=== PATIENT | female | born 1945 | race Caucasian/White ===

== ENCOUNTER 2016-12-01 11:53 | Inpatient (IN) | payer OTHER ==
[~2016-12-01] VITALS: Ht 157.5 cm; Wt 47.7 kg
[~2016-12-01 11:53] MED LIST: ALBUTEROL0.09 MG/Ac IH; AMLODIPINE5 MG PO; BUPROPION100 MG PO; CLONAZEPAM PO; LORAZEPAM0.5 PO; MEG40 PO; METOPROLOL25 MG PO; NITROQUICK SL; OMEPRAZOLE40 MG PO; PAN PO; TRAZODONE100 M1 PO; ZES10 PO; ZOC20 PO
[2016-12-01 13:20] LABS: BASOPHIL % 0.5 % (0-2); PLATELET COUNT 140 x10^3mcL (130-400)
[2016-12-01 13:23] LABS: RED CELL DISTRIBUTION WIDTH 14.7 % (11.5-14.5)
[2016-12-01 13:43] LABS: ALBUMIN 3.4 g/dL (3.4-5.0); BILIRUBIN TOTAL 0.44 mg/dL (0.20-1.00); CALCIUM 8.8 mg/dL (8.5-10.1); CARBON DIOXIDE 24.2 mmol/L (21-32); CREATININE SERUM 1.3 mg/dL (0.6-1.0); T4(THYROXINE) 10.2 ug/dL (4.7-13.3); TOTAL PROTEIN, SERUM 7.4 g/dL (6.4-8.2)
[2016-12-01 13:47] LABS: POTASSIUM SERUM 2.8 mmol/L (3.5-5.1)
[2016-12-01 14:50] LABS: microscopic required? YES; urine erythrocyte NEGATIVE (NEGATIVE)
[2016-12-01 14:58] LABS: AMPHETAMINE QUAL UR NONE DETECTED (NEG <=1000)
[2016-12-01] MEDS ORDERED: RAMIPRIL2.5 MG PO (14:58)
[2016-12-01] MEDS ORDERED: CARVEDILOL6.25 M1 PO (14:58)
[2016-12-01] MEDS ORDERED: AMBIEN5 MG PO (14:59)
[2016-12-01] MEDS ORDERED: CILOSTAZOL100 M1 PO (14:59)
[2016-12-01] MEDS ORDERED: MYRBETRIQ25 MG PO (15:00)
[2016-12-01] MEDS ORDERED: GABAPENTIN100 M2 PO (15:02)
[2016-12-01 15:41] LABS: MAGNESIUM 1.4 mg/dL (1.8-2.4); PHOSPHOROUS 2.4 mg/dL (2.5-4.9)
[2016-12-01 15:49] LABS: CHOLESTEROL/HDL RATIO 2.5
[2016-12-01 15:51] LABS: FREE T4 0.98 ng/dL (0.76-1.46); FREE THYROXINE INDEX 2.9 ug/dL (1.4-4.5); T4(THYROXINE) 10.5 ug/dL (4.7-13.3)
[2016-12-01 15:59] LABS: T3 TOTAL 1.99 ng/mL
[2016-12-01 16:19] VITALS: BP 195/105
[2016-12-01 18:25] VITALS: BP 195/105
[2016-12-01] MEDS ORDERED: WEL75 PO (18:34)
[2016-12-01] MEDS ORDERED: TRAZODONE50 M1 PO (18:36)
[2016-12-01] MEDS ORDERED: CLARITIN10 MG PO (18:37)
[2016-12-01] MEDS ORDERED: HYOSCYAMINE0.125 M2 PO (18:38)
[2016-12-01] MEDS ORDERED: COLACE100 MG PO (18:39)
[2016-12-01] MEDS ORDERED: BENADRYL ALLERG25 M1 PO (18:39)
[2016-12-01 19:10] VITALS: BP 155/110
[2016-12-01 20:18] LABS: CALCIUM 8.4 mg/dL (8.5-10.1); CARBON DIOXIDE 24.4 mmol/L (21-32); CREATININE SERUM 1.3 mg/dL (0.6-1.0); POTASSIUM SERUM 3.5 mmol/L (3.5-5.1)
[2016-12-01 23:02] VITALS: BP 190/81
[2016-12-02] VITALS (9 sets, daily range): BP systolic 156–193; BP diastolic 65–93
[2016-12-02 06:19] LABS: BASOPHIL % 0.5 % (0-2); PLATELET COUNT 139 x10^3mcL (130-400)
[2016-12-02 06:45] LABS: CALCIUM 8.8 mg/dL (8.5-10.1); CARBON DIOXIDE 23.2 mmol/L (21-32); CREATININE SERUM 1.1 mg/dL (0.6-1.0); MAGNESIUM 2.5 mg/dL (1.8-2.4); POTASSIUM SERUM 3.7 mmol/L (3.5-5.1)
[2016-12-02 06:47] LABS: ALBUMIN 3.2 g/dL (3.4-5.0)
[2016-12-02 06:48] LABS: RED CELL DISTRIBUTION WIDTH 14.8 % (11.5-14.5)
[2016-12-03] VITALS (7 sets, daily range): BP systolic 146–187; BP diastolic 59–92
[2016-12-03 06:24] LABS: BASOPHIL % 0.7 % (0-2)
[2016-12-03 06:30] LABS: CALCIUM 8.6 mg/dL (8.5-10.1); CREATININE SERUM 1.2 mg/dL (0.6-1.0); MAGNESIUM 1.9 mg/dL (1.8-2.4); POTASSIUM SERUM 3.7 mmol/L (3.5-5.1)
[2016-12-03 06:40] LABS: ALBUMIN 3.1 g/dL (3.4-5.0)
[2016-12-03 06:47] LABS: PLATELET COUNT 114 x10^3mcL (130-400); RED CELL DISTRIBUTION WIDTH 15.1 % (11.5-14.5)
[2016-12-04 06:06] VITALS: BP 190/85
[2016-12-04 06:15] LABS: BASOPHIL % 0.5 % (0-2)
[2016-12-04 06:28] LABS: PLATELET COUNT 115 x10^3mcL (130-400); RED CELL DISTRIBUTION WIDTH 14.9 % (11.5-14.5)
[2016-12-04 06:34] LABS: CALCIUM 8.6 mg/dL (8.5-10.1); CARBON DIOXIDE 21.8 mmol/L (21-32); CREATININE SERUM 1.3 mg/dL (0.6-1.0); POTASSIUM SERUM 3.8 mmol/L (3.5-5.1)
[2016-12-04 06:53] VITALS: BP 162/70
[2016-12-04 09:10] VITALS: BP 145/61
[2016-12-04 12:42] VITALS: BP 145/61
[2016-12-04 13:40] VITALS: Ht 157.5 cm; Wt 47.7 kg
[2016-12-04 21:26] VITALS: BP 172/80
[2016-12-04 23:30] VITALS: BP 184/86
[2016-12-05 01:05] VITALS: BP 174/72
[2016-12-05 03:25] VITALS: BP 146/63
[2016-12-05 06:00] VITALS: BP 168/66
[2016-12-05 06:39] LABS: BASOPHIL % 0.4 % (0-2)
[2016-12-05 06:50] LABS: PLATELET COUNT 118 x10^3mcL (130-400); RED CELL DISTRIBUTION WIDTH 15.1 % (11.5-14.5)
[2016-12-05 07:01] LABS: CALCIUM 8.8 mg/dL (8.5-10.1); CARBON DIOXIDE 20.9 mmol/L (21-32); CREATININE SERUM 1.1 mg/dL (0.6-1.0); POTASSIUM SERUM 3.4 mmol/L (3.5-5.1)
[2016-12-05] MEDS ORDERED: COREG12.5 MG PO (13:33)
[2016-12-05] MEDS ORDERED: ALT5 PO (13:34)
[2016-12-05] MEDS ORDERED: COUGH100 MG/5 M PO (13:35)
[2016-12-05 14:34] VITALS: BP 139/60
== END 2016-12-05 15:40 | disposition home or self-care (01) | DRG 205 ==
LOC: ED 11:53 → MU 14:54 → DU 14:54 → MU 12-03 08:58
PROVIDERS: Emergency Medicine; Family Medicine; ADMIT Family Medicine
DX: M94.0 Chondrocostal junction syndrome [Tietze] (principal); I50.43 Acute on chronic combined systolic (congestive) and diastolic (congestive) heart failure; N17.0 Acute kidney failure with tubular necrosis; K86.1 Other chronic pancreatitis; I69.354 Hemiplegia and hemiparesis following cerebral infarction affecting left non-dominant side; Z68.1 Body mass index [BMI] 19.9 or less, adult; E87.4 Mixed disorder of acid-base balance; J44.1 Chronic obstructive pulmonary disease with (acute) exacerbation; E44.0 Moderate protein-calorie malnutrition; I67.4 Hypertensive encephalopathy; C51.9 Malignant neoplasm of vulva, unspecified; I11.0 Hypertensive heart disease with heart failure; M79.7 Fibromyalgia; K86.81 Exocrine pancreatic insufficiency; E87.6 Hypokalemia; E83.51 Hypocalcemia; E83.41 Hypermagnesemia; I73.9 Peripheral vascular disease, unspecified; D63.8 Anemia in other chronic diseases classified elsewhere; F32.9 Major depressive disorder, single episode, unspecified; M15.9 Polyosteoarthritis, unspecified; M06.9 Rheumatoid arthritis, unspecified; E78.00 Pure hypercholesterolemia, unspecified; Z99.3 Dependence on wheelchair; Z87.891 Personal history of nicotine dependence; Z86.73 Personal history of transient ischemic attack (TIA), and cerebral infarction without residual deficits
CPT/HCPCS: 36600; 80307; 83880; 84439; J0360; J1200; J1644; J3475; J3480; J3490; J7030; J7613; J7620; J7644; Q0092; Q9967

== ENCOUNTER 2017-01-01 11:33 | Observation (INO) | payer OTHER ==
[~2017-01-01] VITALS: Ht 157.5 cm; Wt 49.5 kg
[~2017-01-01 11:33] MED LIST changes: +ALT5 PO; +AMBIEN5 MG PO; +BENADRYL ALLERG25 M1 PO; +CARVEDILOL6.25 M1 PO; +CILOSTAZOL100 M1 PO; +CLARITIN10 MG PO; +COLACE100 MG PO; +COREG12.5 MG PO; +COUGH100 MG/5 M PO; +GABAPENTIN100 M2 PO; +HYOSCYAMINE0.125 M2 PO; +MYRBETRIQ25 MG PO; +RAMIPRIL2.5 MG PO; +TRAZODONE50 M1 PO; +WEL75 PO
[2017-01-01 12:46] LABS: BASOPHIL % 0.7 % (0-2); PLATELET COUNT 159 x10^3mcL (130-400)
[2017-01-01 12:49] LABS: RED CELL DISTRIBUTION WIDTH 14.9 % (11.5-14.5)
[2017-01-01 12:56] LABS: CARBON DIOXIDE 21.8 mmol/L (21-32); CREATININE SERUM 1.2 mg/dL (0.6-1.0); POTASSIUM SERUM 3.1 mmol/L (3.5-5.1)
[2017-01-01 13:01] LABS: BILIRUBIN TOTAL 0.32 mg/dL (0.20-1.00); MAGNESIUM 1.5 mg/dL (1.8-2.4); TOTAL PROTEIN, SERUM 7.8 g/dL (6.4-8.2)
[2017-01-01 13:02] LABS: ALBUMIN 3.3 g/dL (3.4-5.0)
[2017-01-01 13:19] LABS: microscopic required? YES; urine erythrocyte NEGATIVE (NEGATIVE)
[2017-01-01 15:35] LABS: T3 TOTAL 2.18 ng/mL
[2017-01-01 16:08] LABS: PHOSPHOROUS 3.5 mg/dL (2.5-4.9)
[2017-01-01 16:11] VITALS: BP 132/86
[2017-01-01 16:15] LABS: FREE T4 1.18 ng/dL (0.76-1.46); FREE THYROXINE INDEX 2.9 ug/dL (1.4-4.5); T4(THYROXINE) 10.1 ug/dL (4.7-13.3)
[2017-01-01 16:33] LABS: CHOLESTEROL/HDL RATIO 2.9
[2017-01-01 18:02] VITALS: BP 132/86
[2017-01-01 18:38] VITALS: Ht 157.5 cm; Wt 49.5 kg
[2017-01-01 21:31] VITALS: BP 167/70
[2017-01-01 22:00] VITALS: BP 155/75
[2017-01-02] VITALS (7 sets, daily range): BP systolic 105–177; BP diastolic 42–80
[2017-01-02 05:37] LABS: BASOPHIL % 0.4 % (0-2); PLATELET COUNT 146 x10^3mcL (130-400); RED CELL DISTRIBUTION WIDTH 14.7 % (11.5-14.5)
[2017-01-02 05:46] LABS: CARBON DIOXIDE 24.6 mmol/L (21-32); CREATININE SERUM 1.3 mg/dL (0.6-1.0); POTASSIUM SERUM 4.4 mmol/L (3.5-5.1)
[2017-01-02 05:53] LABS: MAGNESIUM 2.5 mg/dL (1.8-2.4); PHOSPHOROUS 3.6 mg/dL (2.5-4.9)
[2017-01-02] MEDS ORDERED: KLOR-CON M1010 MEQ PO (12:53)
[2017-01-02] MEDS ORDERED: MAGNESIUM OXID400 MG PO (12:54)
[2017-01-02] MEDS ORDERED: [UNRECOGNIZED DRUG - OTHER] PO (12:55)
[2017-01-02] MEDS ORDERED: PULMICORT180 MCG/Ac INH (13:00)
[2017-01-02] MEDS ORDERED: CORE25 PO (13:19)
[2017-01-02] MEDS ORDERED: NEU100 PO (13:38)
[2017-01-02] MEDS ORDERED: ATIVAN0.5 M1 PO (13:40)
== END 2017-01-02 19:16 | disposition home or self-care (01) | DRG 205 ==
LOC: ED 11:33 → DU 14:16
PROVIDERS: Emergency Medicine; ADMIT Family Medicine
DX: M94.0 Chondrocostal junction syndrome [Tietze] (principal); I50.43 Acute on chronic combined systolic (congestive) and diastolic (congestive) heart failure; N17.0 Acute kidney failure with tubular necrosis; J44.1 Chronic obstructive pulmonary disease with (acute) exacerbation; I16.0 Hypertensive urgency; C51.9 Malignant neoplasm of vulva, unspecified; E05.90 Thyrotoxicosis, unspecified without thyrotoxic crisis or storm; D64.9 Anemia, unspecified; E83.42 Hypomagnesemia; E87.6 Hypokalemia; M06.9 Rheumatoid arthritis, unspecified; M79.7 Fibromyalgia; I08.3 Combined rheumatic disorders of mitral, aortic and tricuspid valves; I44.7 Left bundle-branch block, unspecified; G47.00 Insomnia, unspecified; F41.9 Anxiety disorder, unspecified; F32.9 Major depressive disorder, single episode, unspecified; Z68.20 Body mass index [BMI] 20.0-20.9, adult; Z87.891 Personal history of nicotine dependence; Z86.73 Personal history of transient ischemic attack (TIA), and cerebral infarction without residual deficits
CPT/HCPCS: 36600; 83880; 84439; G0378; G0480; J0360; J2405; J2543; J3475; J7030; J7613; J7620; Q0163

== ENCOUNTER → 2017-10-25 | Outpatient (CLI) | payer OTHER ==
[~2017-10-25] MED LIST changes: +ATIVAN0.5 M1 PO; +CORE25 PO; +KLOR-CON M1010 MEQ PO; +MAGNESIUM OXID400 MG PO; +NEU100 PO; +PULMICORT180 MCG/Ac INH; +[UNRECOGNIZED DRUG - OTHER] PO
== END | disposition home or self-care (01) ==
LOC: RD 15:43
DX: R05 Cough (principal)

== ENCOUNTER → 2019-03-27 | Outpatient (CLI) | payer OTHER | END | disposition home or self-care (01) | LOC: RD 12:09 | DX: M79.672 Pain in left foot (principal); M79.671 Pain in right foot; M25.572 Pain in left ankle and joints of left foot; M25.571 Pain in right ankle and joints of right foot ==